=== PATIENT | male | born 1985 | race Caucasian/White ===

== ENCOUNTER → 2022-07-28 | Outpatient (CLI) | payer OTHER ==
[2022-07-28 11:54] LABS: ALBUMIN 4.5 g/dL (3.4-5.0); BILIRUBIN,DIRECT 0.1 mg/dL (0.00-0.20); BILIRUBIN,TOTAL 0.5 mg/dL (0.1-1.0); TOTAL PROTEIN, SERUM 7.9 g/dL (6.4-8.2)
== END | disposition home or self-care (01) ==
LOC: MSR 10:09
PROVIDERS: ATTEND Chiropractor
DX: M47.817 Spondylosis without myelopathy or radiculopathy, lumbosacral region (principal); M47.898 Other spondylosis, sacral and sacrococcygeal region; M47.814 Spondylosis without myelopathy or radiculopathy, thoracic region; K76.9 Liver disease, unspecified; R00.0 Tachycardia, unspecified; M51.37 Other intervertebral disc degeneration, lumbosacral region
CPT/HCPCS: 71046; 72100; 80076; 93005; 93306; 36415-L1; 36415-TC